=== PATIENT | female | born 1990 | race American Indian/Alaskan Native ===

== ENCOUNTER 2020-05-18 11:20 | Emergency (ER) | payer SELFPAY ==
[2020-05-18 11:44] VITALS: BP 136/93
--- NOTE | 2020-05-18 13:11 | Emergency Department Report ---
ED General Adult HPI - General Chief complaint: Dental/Oral Stated complaint: HOLE IN TOOTH Time Seen by Provider: 05/18/20 12:00 Source: patient Mode of arrival: Ambulatory Limitations: No Limitations - History of Present Illness Initial comments: Pt complains of right lower dental pain x 2 weeks. She states she is currently taking amoxil, however her symptoms are not improving. She was seen by a dental specialist that informed her that she needed the tooth pulled. She denies any facial swelling, fever/chills/sweats, or difficulty opening her jaw/swallowing. Pt rates her pain as a 9/10 in severity and states it is not improving with ibuprofen 800 mg - Related Data Previous Rx's Medication Instructions Recorded Last Taken Type Acetaminophen/Codeine [Tylenol 1 tab PO Q6H PRN #12 tab 05/18/20 Unknown Rx /Codeine # 3 tab] Clindamycin [Clindamycin CAP] 300 mg PO Q6H 10 Days #40 capsule 05/18/20 Unknown Rx Ketorolac [Toradol] 10 mg PO Q6H PRN 5 Days #15 tablet 05/18/20 Unknown Rx Allergies Allergy/AdvReac Type Severity Reaction Status Date / Time No Known Allergies Allergy Unverified 05/18/20 11:41 ED Review of Systems ROS: Stated complaint: HOLE IN TOOTH Other details as noted in HPI Constitutional: denies: chills, diaphoresis, fever, malaise, weakness ENT: dental pain. denies: ear pain, throat pain Respiratory: denies: shortness of breath Cardiovascular: denies: chest pain Skin: denies: rash, lesions, change in color Neurological: denies: headache ED Past Medical Hx - Past Medical History Previous Medical History?: No - Surgical History Past Surgical History?: No - Social History Smoking Status: Current Every Day Smoker - Medications Home Medications: Home Medications Medication Instructions Recorded Confirmed Last Taken Type Acetaminophen/Codeine [Tylenol 1 tab PO Q6H PRN #12 tab 05/18/20 Unknown Rx /Codeine # 3 tab] Clindamycin [Clindamycin CAP] 300 mg PO Q6H 10 Days #40 capsule 05/18/20 Unknown Rx Ketorolac [Toradol] 10 mg PO Q6H PRN 5 Days #15 tablet 05/18/20 Unknown Rx ED Physical Exam - General Limitations: No Limitations General appearance: alert, in no apparent distress - Head Head exam: Present: atraumatic, normocephalic - Eye Eye exam: Present: normal appearance. Absent: scleral icterus - Expanded ENT Exam Expanded Mouth exam: Present: tongue normal. Absent: drooling, trismus, muffled voice 1 - Dental Tenderness (wisdom tooth noted with surrounding erythema; no obvious abscess or facial swelling is noted) - Neck Neck exam: Present: normal inspection. Absent: lymphadenopathy - Respiratory Respiratory exam: Present: normal lung sounds bilaterally. Absent: respiratory distress - Cardiovascular Cardiovascular Exam: Present: regular rate, normal rhythm - Extremities Exam Extremities exam: Present: normal inspection - Back Exam Back exam: Present: normal inspection - Neurological Exam Neurological exam: Present: alert, oriented X3, normal gait - Psychiatric Psychiatric exam: Present: normal affect, normal mood - Skin Skin exam: Present: warm, dry, intact, normal color. Absent: rash, cyanosis, diaphoretic, erythema, petechiae, pallor ED Course Vital Signs 05/18/20 11:42 Temperature 98.0 F Pulse Rate 83 Respiratory 16 Rate Blood Pressure 136/93 O2 Sat by Pulse 100 Oximetry ED Medical Decision Making - Medical Decision Making Pt complains of right lower dental pain x 2 weeks. She states she is currently taking amoxil, however her symptoms are not improving. She was seen by a dental specialist that informed her that she needed the tooth pulled. She denies any facial swelling, fever/chills/sweats, or difficulty opening her jaw/swallowing. Pt rates her pain as a 9/10 in severity and states it is not improving with ibuprofen 800 mg. Dental tenderness and facial swelling noted without obvious abscess on exam. Rx for amoxil given. Pt informed to follow up with dental specialist within 2 days. Strict return precautions were discussed in detail with pt who verbalizes understanding. Critical care attestation.: If time is entered above; I have spent that time in minutes in the direct care of this critically ill patient, excluding procedure time. ED Disposition Clinical Impression: Pain, dental Disposition: TO HOME OR SELFCARE Is pt being admited?: No Condition: Stable Instructions: Dental Caries (ED), Toothache (ED) Additional Instructions: Discontinue taking ibuprofen. Please follow up with a dental specialist from the list provided within 24-48 hours Prescriptions: Clindamycin [Clindamycin CAP] 300 mg PO Q6H 10 Days #40 capsule Ketorolac [Toradol] 10 mg PO Q6H PRN 5 Days #15 tablet PRN Reason: Pain Acetaminophen/Codeine [Tylenol /Codeine # 3 tab] 1 tab PO Q6H PRN #12 tab PRN Reason: Pain , Severe (7-10) Referrals: SHASHANK CAMEJO MD [Primary Care Provider] - 3-5 Days
== END 2020-05-18 13:39 | disposition home or self-care (01) ==
LOC: ED 11:20
DX: K08.89 Other specified disorders of teeth and supporting structures (principal); F17.200 Nicotine dependence, unspecified, uncomplicated
CPT/HCPCS: 99281